=== PATIENT | male | born 1980 | race Caucasian/White ===

== ENCOUNTER → 2020-03-15 | Outpatient (CLI) | payer OTHER ==
--- NOTE | 2020-03-15 12:48 | XR ---
EXAMINATION TYPE: XR thoracic spine complete DATE OF EXAM: 03/15/2020 CLINICAL HISTORY: pain TECHNIQUE: Frontal, lateral, and swimmer's view of thoracic spine are obtained. COMPARISON: None. FINDINGS: Thoracic spine show satisfactory alignment without evidence of acute fracture or dislocatio n. Vertebral body heights are preserved. Mild degenerative disc space narrowing and spondylosis. V isualized ribs are unremarkable. IMPRESSION: No acute fracture or dislocation is seen in the thoracic spine. ICD 10 NO FRACTURE, INIT IAL EVALUATION
--- NOTE | 2020-03-15 12:53 | XR ---
EXAMINATION TYPE: XR lumbar spine 2 or 3V DATE OF EXAM: 03/15/2020 CLINICAL HISTORY: pain TECHNIQUE: Three views of the lumbar spine are submitted. COMPARISON: None. FINDINGS: There are 5 lumbar type vertebral bodies identified. The lumbar spine shows satisfactory alignment w ithout evidence of acute fracture or dislocation. Vertebral body heights are within normal limits. Disc spaces are within normal limits. The overlying soft tissue appears unremarkable. IMPRESSION: No acute fracture or dislocation is seen in the lumbar spine. ICD 10 NO FRACTURE, INITIAL EVALUATION
== END | disposition home or self-care (01) ==
LOC: RADXRMAIN 12:16
PROVIDERS: ATTEND Internal Medicine
DX: M54.5 Low back pain (principal); M54.6 Pain in thoracic spine
CPT/HCPCS: 72072; 72100

== ENCOUNTER → 2020-04-12 | Outpatient (CLI) | payer OTHER ==
--- NOTE | 2020-04-12 13:21 | XR ---
EXAMINATION TYPE: XR shoulder complete RT DATE OF EXAM: 04/12/2020 CLINICAL HISTORY: pain TECHNIQUE: Three views of the right shoulder are obtained. COMPARISON: None FINDINGS: There is no acute fracture/dislocation evident. The acromioclavicular and glenohumeral [place] int spaces appear within normal limits. The visualized ribs are intact and unremarkable. IMPRESSION: 1. There is no acute fracture or dislocation. ICD 10 NO FRACTURE, INITIAL EVALUATION
== END | disposition home or self-care (01) ==
LOC: RADXRMAIN 12:52
PROVIDERS: ATTEND Emergency Medicine
DX: S46.801A Unspecified injury of other muscles, fascia and tendons at shoulder and upper arm level, right arm, initial encounter (principal)

== ENCOUNTER 2020-07-19 14:10 | Emergency (ER) | payer OTHER ==
[2020-07-19] MEDS ORDERED: ONDANSETRON 4 MG/2 ML VIAL IVP STA (14:32)
[2020-07-19] MEDS ORDERED: MORPHINE SULFATE 2 MG/ML SYRINGE IVP STA (14:32)
--- NOTE | 2020-07-19 14:36 | ED ---
Lower Extremity Injury HPI - General Chief Complaint: Extremity Injury, Lower Stated Complaint: Fall, Left leg pain Time Seen by Provider: 07/19/20 14:26 Source: patient, RN notes reviewed Mode of arrival: wheelchair Limitations: no limitations - History of Present Illness Initial Comments: Patient is a 39-year-old male that presents to emergency department with left ankle and foot pain. He noted he was shoveling snow and slipped and noted that he hurt his ankle foot. He said the pain is a 10 on a 10 currently with no relief from any medication or rest. He did state that he used to be on [place] tends for pain but hasn't had any pain medication in a while. He noted that he did have difficulties with eversion of his left foot. He denied any numbness tingling paresthesias chest pain shortness of breath headache nausea vomiting diarrhea constipation fever fatigue chills. - Related Data Home Medications Medication Instructions Recorded Confirmed Acetaminophen Tab [Tylenol] 1,000 mg PO ONCE PRN 07/19/20 07/19/20 Neurontin (Unknown Strength) 1 tab PO ONCE PRN 07/19/20 07/19/20 RX: Ibuprofen [Motrin Ib] 200 mg PO ONCE PRN 07/19/20 07/19/20 RX: Metoprolol Tartrate [Lopressor] 50 mg PO DAILY 07/19/20 07/19/20 RX: Naproxen 500 mg PO BID PRN 07/19/20 07/19/20 RX: Phenytoin Sodium Extended 100 mg PO TID 07/19/20 07/19/20 [Dilantin] RX: traZODone HCL 200 mg PO HS 07/19/20 07/19/20 Venlafaxine HCl [Effexor XR] 225 mg PO DAILY 07/19/20 07/19/20 Allergies Allergy/AdvReac Type Severity Reaction Status Date / Time red dye Allergy Rash/Hives Verified 07/19/20 15:26 Review of Systems ROS Statement: Those systems with pertinent positive or pertinent negative responses have been documented in the HPI. ROS Other: All systems not noted in ROS Statement are negative. Past Medical History Past Medical History: Seizure Disorder History of Any Multi-Drug Resistant Organisms: None Reported Past Surgical History: No Surgical Hx Reported Past Psychological History: Bipolar, PTSD Smoking Status: Current every day smoker Past Alcohol Use History: Occasional Past Drug Use History: Marijuana General Exam Limitations: no limitations General appearance: alert, in no apparent distress Head exam: Present: atraumatic, normocephalic, normal inspection Eye exam: Present: normal appearance, PERRL, EOMI. Absent: scleral icterus, conjunctival injection, periorbital swelling ENT exam: Present: normal exam, mucous membranes moist Neck exam: Present: normal inspection. Absent: tenderness, meningismus, lymphadenopathy Respiratory exam: Present: normal lung sounds bilaterally. Absent: respiratory distress, wheezes, rales, rhonchi, stridor Cardiovascular Exam: Present: regular rate, normal rhythm, normal heart sounds. Absent: systolic murmur, diastolic murmur, rubs, gallop, clicks Extremities exam: Present: normal inspection, tenderness (Mild tenderness over the lateral malleolus and medial aspect of the dorsal side of the foot.), normal capillary refill. Absent: full ROM (Decreased range of motion of left foot to eversion, flexion, extension due to pain.), pedal edema, joint swelling, calf tenderness Neurological exam: Present: alert, oriented X3, CN II-XII intact Psychiatric exam: Present: normal affect, normal mood Skin exam: Present: warm, dry, intact, normal color. Absent: rash Course Vital Signs 07/19/20 14:22 Temperature 98.4 F Pulse Rate 91 Respiratory 16 Rate Blood Pressure 127/73 O2 Sat by Pulse 100 Oximetry Medical Decision Making - Medical Decision Making Patient is 39-year-old male complaining of left ankle foot pain after falling was shoveling. X-rays, pain medication and nausea medication ordered. X-rays unremarkable. Case discussed with Dr. Dillon, decided it located discharge patient home for conservative management. - Radiology Data Radiology results: report reviewed, image reviewed No acute osseous abnormality of the left foot. Normal 3 view left ankle. Disposition Clinical Impression: Left ankle sprain Disposition: HOME SELF-CARE Condition: Stable Instructions (If sedation given, give patient instructions): Ankle Sprain (ED) Additional Instructions: Please return to the Emergency Department if symptoms worsen or any other co ncerns. Follow-up with primary care 1-2 days. Rest ice elevate the left ankle. Weightbearing as tolerated. Take pain medication as prescribed. Is patient prescribed a controlled substance at d/c from ED?: No Referrals: Kortney Carranza MD [Primary Care Provider] - 1-2 days Time of Disposition: 15:45
[2020-07-19] MEDS ORDERED: KETOROLAC 15 MG/ML 1 ML VIAL IVP STA (14:55)
--- NOTE | 2020-07-19 15:25 | XR ---
EXAMINATION TYPE: XR foot complete LT DATE OF EXAM: 07/19/2020 COMPARISON: None HISTORY: Pain, fall on ice TECHNIQUE: Three-view left foot FINDINGS: No acute fracture or dislocation is evident. Joint spaces are preserved. Alignment is iwona l. Soft tissues are unremarkable. There may be some flattening of the plantar arch. Follow-up exams can be performed 7-10 days from acute trauma for continued pain. IMPRESSION: 1. No acute osseous abnormality left foot.
--- NOTE | 2020-07-19 15:26 | XR ---
EXAMINATION TYPE: XR ankle complete LT DATE OF EXAM: 07/19/2020 COMPARISON: None HISTORY: Fall on ice, pain TECHNIQUE: Three-view left ankle FINDINGS: Ankle mortise is intact. No acute displaced fractures are evident. The soft tissues are nor mal. Follow-up exams can be performed 7-10 days from acute trauma for continued pain. IMPRESSION: 1. Normal three-view left ankle.
[2020-07-19] MEDS ORDERED: ACET/COD 300 MG/30 MG STARTER PACK 6 TAB BTL PO STA (15:40)
[2020-07-19 15:50] VITALS: BP 119/79; PULSE 90; RESP 18; TEMP 98.2
== END 2020-07-19 15:50 | disposition home or self-care (01) ==
LOC: EC 14:10
DX: S93.402A Sprain of unspecified ligament of left ankle, initial encounter (principal); G40.909 Epilepsy, unspecified, not intractable, without status epilepticus; F17.200 Nicotine dependence, unspecified, uncomplicated; F31.9 Bipolar disorder, unspecified; F43.10 Post-traumatic stress disorder, unspecified; Z79.899 Other long term (current) drug therapy; Z91.041 Radiographic dye allergy status; W00.0XXA Fall on same level due to ice and snow, initial encounter; Y93.H1 Activity, digging, shoveling and raking; Y92.89 Other specified places as the place of occurrence of the external cause
CPT/HCPCS: 73610; 73630; 99283; 96374; J1885

== ENCOUNTER 2020-08-06 12:47 | Emergency (ER) | payer OTHER ==
[2020-08-06 12:52] VITALS: BP 130/83; PULSE 95; RESP 18; TEMP 98
[2020-08-06] MEDS ORDERED: KETOROLAC 15 MG/ML 1 ML VIAL IM STA (13:13)
--- NOTE | 2020-08-06 13:43 | XR ---
Right knee HISTORY: Pain and swelling 3 views the right knee Bone mineralization, joint spaces and alignment are maintained. No fracture or dislocation. IMPRESSION: No bone abnormality evident
--- NOTE | 2020-08-06 13:57 | ED ---
Lower Extremity Injury HPI - General Chief Complaint: Extremity Injury, Lower Stated Complaint: rt knee injury Time Seen by Provider: 08/06/20 12:55 Source: patient Mode of arrival: wheelchair Limitations: no limitations - History of Present Illness Initial Comments: 40-year-old male presents to emergency Department with a chief complaint of right knee pain. Patient states this has been ongoing for the past several weeks. States the pain is exacerbated with ambulation, knee flexion and extension. He denies any significant injuries aside from an ankle sprain from one week ago which she believes exacerbated the pain. He denies any erythema or ecchymosis but does report mild swelling. Denies any numbness or tingling. Patient reports the pain is sharp and rates this time. Patient recently started on Suboxone therapy. - Related Data Home Medications Medication Instructions Recorded Confirmed Acetaminophen Tab [Tylenol] 1,000 mg PO ONCE PRN 07/19/20 07/19/20 Ibuprofen [Motrin Ib] 200 mg PO ONCE PRN 07/19/20 07/19/20 Metoprolol Tartrate [Lopressor] 50 mg PO DAILY 07/19/20 07/19/20 Naproxen 500 mg PO BID PRN 07/19/20 07/19/20 Neurontin (Unknown Strength) 1 tab PO ONCE PRN 07/19/20 07/19/20 Phenytoin Sodium Extended 100 mg PO TID 07/19/20 07/19/20 [Dilantin] Venlafaxine HCl [Effexor XR] 225 mg PO DAILY 07/19/20 07/19/20 traZODone HCL 200 mg PO HS 07/19/20 07/19/20 Allergies Allergy/AdvReac Type Severity Reaction Status Date / Time red dye Allergy Rash/Hives Verified 08/06/20 12:50 Review of Systems ROS Statement: Those systems with pertinent positive or pertinent negative responses have been documented in the HPI. ROS Other: All systems not noted in ROS Statement are negative. Past Medical History Past Medical History: Seizure Disorder History of Any Multi-Drug Resistant Organisms: None Reported Past Surgical History: No Surgical Hx Reported Past Psychological History: Bipolar, PTSD Smoking Status: Current every day smoker Past Alcohol Use History: Occasional Past Drug Use History: Marijuana General Exam Limitations: no limitations General appearance: alert, in no apparent distress Head exam: Present: atraumatic, normocephalic, normal inspection Eye exam: Present: normal appearance, PERRL, EOMI Pupils: Present: normal accommodation ENT exam: Present: normal exam, normal oropharynx, mucous membranes moist Neck exam: Present: normal inspection, full ROM. Absent: tenderness Respiratory exam: Present: normal lung sounds bilaterally. Absent: respiratory distress Cardiovascular Exam: Present: regular rate, normal rhythm, normal heart sounds Extremities exam: Present: normal inspection (Very mild edema in the medial aspect of the knee. No signs of ecchymosis or erythema.), tenderness (Medial aspect tenderness), normal capillary refill, other (Palpable DP and PT bilaterally). Absent: full ROM (Limited range of motion with flexion and extension), pedal edema, joint swelling, calf tenderness Back exam: Present: normal inspection, full ROM. Absent: tenderness Neurological exam: Present: alert, oriented X3 Psychiatric exam: Present: normal affect, normal mood Skin exam: Present: warm, dry, intact, normal color Course Vital Signs 08/06/20 12:48 Temperature 98.0 F Pulse Rate 95 Respiratory 18 Rate Blood Pressure 130/83 O2 Sat by Pulse 100 Oximetry Medical Decision Making - Medical Decision Making 40-year-old male presents to emergency Department with a chief complaint of right knee pain. On physical examination, no concern for septic knee at this time. X-rays unremarkable. Patient is resting comfortably in bed and playing with his phone. Patient was given Toradol for pain. Advised to rest, ice, compression and elevate. Advised to follow-up with medical staff specialist if the symptoms worsen. Return parameters discussed the patient was understanding and agreeable. Case discussed with Dr. Rausch. Disposition Clinical Impression: Right knee pain Disposition: HOME SELF-CARE Condition: Stable Instructions (If sedation given, give patient instructions): Knee Sprain (ED) Additional Instructions: Follow-up with medical staff specialist. Alternate between Tylenol Motrin. Return to emergency department if symptoms worsen. Is patient prescribed a controlled substance at d/c from ED?: No Referrals: Kortney Carranza MD [Primary Care Provider] - 1-2 days Time of Disposition: 13:56
== END 2020-08-06 14:10 | disposition home or self-care (01) ==
LOC: EC 12:47
DX: M25.561 Pain in right knee (principal); G40.909 Epilepsy, unspecified, not intractable, without status epilepticus; F31.9 Bipolar disorder, unspecified; F43.10 Post-traumatic stress disorder, unspecified; F17.200 Nicotine dependence, unspecified, uncomplicated; Z79.899 Other long term (current) drug therapy; Z91.09 Other allergy status, other than to drugs and biological substances
CPT/HCPCS: 73562; 99283; 96372; J1885

== ENCOUNTER → 2023-12-14 | Outpatient (CLI) | payer OTHER ==
--- NOTE | 2023-12-14 10:35 | XR ---
EXAMINATION TYPE: XR soft tissue neck DATE OF EXAM: 12/14/2023 COMPARISON: None HISTORY: Pain TECHNIQUE: 2 view soft tissue neck FINDINGS: There may be some subglottic airway edema. Epiglottis appears normal. Prevertebral space is normal. IMPRESSION: 1. Suggestion of some mild steepling of the glottic airway, not evident cervical spine images. 2. Soft tissue neck otherwise appears unremarkable.
--- NOTE | 2023-12-14 10:36 | XR ---
EXAMINATION TYPE: XR cervical spine limited DATE OF EXAM: 12/14/2023 COMPARISON: None HISTORY: Pain TECHNIQUE: 3 views cervical spine FINDINGS: Alignment is straightened. Prevertebral space is normal. Mild loss of disc height is presen t C5-6 through C7-T1. Posterior spinal lamellar line is intact. Mild limitations on the odontoid with overlying occiput. IMPRESSION: 1. Mild degenerative disc change lower cervical spine
--- NOTE | 2023-12-14 10:52 | XR ---
EXAMINATION TYPE: XR knee complete bilateral DATE OF EXAM: 12/14/2023 COMPARISON: 08/06/2020 HISTORY: Pain TECHNIQUE: 3 view each knee FINDINGS: No acute fracture or dislocation evident. Joint spaces are preserved. No joint effusions ar e evident. Small posterior superior patellar spur is present on the right and left patella. Follow up exams can be performed as clinically indicated. IMPRESSION: 1. No acute osseous abnormalities bilateral knees
== END | disposition home or self-care (01) ==
LOC: RADXRMAIN 09:57
PROVIDERS: ATTEND Internal Medicine
DX: M25.561 Pain in right knee (principal); M25.562 Pain in left knee; M54.50 Low back pain, unspecified; M54.2 Cervicalgia; M50.30 Other cervical disc degeneration, unspecified cervical region
CPT/HCPCS: 70360; 72040

== ENCOUNTER → 2023-12-14 | Outpatient (CLI) | payer OTHER ==
[2023-12-14 23:28] LABS: Basophils # (A) 0.08 X 10*3/uL (0.00-0.10); Basophils % (A) 0.9 %; Eosinophils # (A) 0.16 X 10*3/uL (0.04-0.35); Eosinophils % (A) 1.9 %; HCT 45.4 % (39.6-50.0); HGB 15.1 g/dL (13.0-17.0); Lymphocytes # (A) 1.31 X 10*3/uL (0.90-5.00); Lymphocytes % (A) 15.4 %; MCH 28.5 pg (27.0-32.0); MCHC 33.3 g/dL (32.0-37.0); MCV 85.7 FL (80.0-97.0); Mean Platelet Volume 11.7 FL (9.5-12.2); Monocytes # (A) 0.72 X 10*3/uL (0.20-1.00); Monocytes % (A) 8.5 %; NRBC Per 100 WBC 0 X 10*3/uL (0.00-0.01); Neutrophils # (A) 6.22 X 10*3/uL (1.80-7.70); Neutrophils % (A) 72.9 %; Platelet Count 242 X 10*3/uL (140-440); RDW 13.1 % (11.5-14.5); WBC 8.52 X 10*3/uL (4.50-10.00)
[2023-12-15 07:50] LABS: ALT 13 U/L (10-49); AST 19 U/L (14-35); Albumin 4.6 g/dL (3.8-4.9); Alkaline Phosphatase 67 U/L (41-126); BUN/Creat Ratio 10.73 Ratio (12.00-20.00); Blood Urea Nitrogen 11.8 mg/dL (9.0-27.0); Calcium 9.7 mg/dL (8.7-10.3); Carbon Dioxide 25.7 mmol/L (21.6-31.8); Chloride 105 mmol/L (96-109); Chol/HDL Ratio 5.54 Ratio; Globulin 2.3 g/dL (1.6-3.3); Glucose 111 mg/dL (70-110); LDL Cholesterol,Calculated 118.7 mg/dL (0.0-131.0); Potassium 4.4 mmol/L (3.5-5.5); Sodium 142 mmol/L (135-145); Total Bilirubin 0.3 mg/dL (0.3-1.2); Total Protein 6.9 g/dL (6.2-8.2)
== END | disposition home or self-care (01) ==
LOC: LABWHC1 09:50
PROVIDERS: ATTEND Internal Medicine
DX: K21.9 Gastro-esophageal reflux disease without esophagitis (principal)
CPT/HCPCS: 36415; 80053; 80061; 84443; 85025

== ENCOUNTER → 2024-10-14 | Outpatient (CLI) | payer OTHER ==
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
== END | disposition home or self-care (01) ==
LOC: RADMRIMAIN 14:55
PROVIDERS: ATTEND Internal Medicine
DX: G40.909 Epilepsy, unspecified, not intractable, without status epilepticus (principal); R90.82 White matter disease, unspecified
CPT/HCPCS: 70553; A9585